=== PATIENT | female | born 2005 | race Native Hawaiian/Other Pacific Islander ===

== ENCOUNTER 2025-06-23 07:26 | Outpatient (CLI) | payer SELFPAY ==
[2025-06-23 07:42] VITALS: BP 127/78; PULSE 92; RESP 16; TEMP 36.8
--- NOTE | 2025-06-23 10:27 | PC.OBNST ---
NST Note NST Note Start: 06/23/25 07:33 Freq: ONCE Status: Active Protocol: Document 06/23/25 07:33 [facility] (Rec: 06/23/25 10:27 [facility] [id number]) NST Note 3 Para (# of births) 2 EDC 06/27/25 Gestational Age In 39 Weeks & 3 Days Weeks & Days Patient Presented Contractions/cramping with Complaint(s) of Reactive Yes Appropriate for Yes Gestational Age MARK Collado Date 06/23/25 Reactive Yes Appropriate for Yes Gestational Age MARK Kumar Date 06/23/25 OB NST charge Yes Complete NST Note Yes via Write Note The provider's electronic signature indicates the NST is reactive/appropriate for gestational age. *Note to provider: If an addendum is required, open the patient's chart and click on the note under the Nurse/Allied Health tab.
== END 2025-06-23 10:35 | disposition home or self-care (01) ==
LOC: OB OUT 07:27 → OB 07:28
PROVIDERS: Visit Provider Family Medicine
DX: O47.03 False labor before 37 completed weeks of gestation, third trimester (principal); Z3A.39 39 weeks gestation of pregnancy
CPT/HCPCS: 59025; G0463

== ENCOUNTER 2025-06-23 17:13 | Inpatient (IN) | payer OTHER, SELFPAY ==
[2025-06-23] VITALS (12 sets, daily range): BP systolic 109–136; BP diastolic 56–82; PULSE 67–82; RESP 16–18; TEMP 36.6–36.9; O2SAT 96; BMI 36.3
[2025-06-23] MEDS: AMPICILLIN 2 GM in 0.9 % SODIUM CHLORIDE Mini-bag 100 ML IVPB (17:16)
[2025-06-23] MEDS: LACTATED RINGERS 500 ML 500 ML 125 ML IV (17:16)
[2025-06-23] MEDS: OXYTOCIN 30 unit/500 ML in NS 30 UNIT/500 ML BAG 300 UNIT IVPB (17:39)
--- NOTE | 2025-06-23 18:02 | PM.OBHPLI ---
OB - H&P: HPI Labor/Induction History of Present Illness Time Seen by Provider: 17:30 Date Seen: 06/23/25 Chief Complaint: The patient is a 19 year old 3 para 2 at 39.3 weeks gestation by early ultrasound (unsure LMP), who presents with active labor. Chief complaint: maternity : 3 Para: 2 Narrative: Jil Younger is a 19 year old female who is a who presented at 39.3 weeks gestation in active labor. She progressed quickly without intervention. 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 Came in and was ruled out at 3 cm. She returned and was 4.5 cm on admission, was feeling pressure 1.5 hours later and I was called to bedside. She was 9cm upon my first evaluation. Breathing through contractions. She was a difficult IV, received approximately 15 minutes of abx prior to feeling urge to push. History of Present Dating criteria: based on 1st trimester US only care: good care (late to care, first visit 26 weeks) Ultrasounds: normal 1st trimester US and normal mid trimester US Medical complications: none Labs Blood type: O (+) positive Rubella: immune RPR/VDLR: nonreactive GBS status: positive HBsAG: negative Review of Systems Status of ROS: Reports: 10 or more systems reviewed and unremarkable except as noted in History and below Meds Home Medications and Allergies Home Medications ?Medication ?Instructions ?Recorded ?Confirmed ?Type [id number]-[id number] 1 mg tab PO DAILY 06/23/25 History tablet Allergies Allergy/AdvReac Type Severity Reaction Status Date / Time No Known Drug Allergies Allergy Verified 06/23/25 07:38 OB - H&P: Exam Physical Exam: Vital signs: Temp Pulse Resp BP 98.2 F 81 17 127/82 06/23/25 15:31 06/23/25 17:49 06/23/25 15:31 06/23/25 17:49 Constitutional: Constitutional: mild distress (painful with contractions) Routine HEENT Exam: Head: Present atraumatic and normal inspection Routine Neck Exam: Neck: Present full ROM Routine Respiratory Exam: Respiratory: Present CTA bilaterally Routine Cardiovascular Exam: Cardiovascular: RRR, S1 and S2 Routine Exam: Perineum Description: Normal Detailed Labor and Delivery Exam: Patient Gravid: yes Dilation (cm): 9 Effacement (%): 100 Cervix position: anterior Consistency: soft Contraction intensity: Strong/Firm Fetus (Single): Station: 0 Amniotic Membrane Status: intact Heart Rate Baseline: 130 Monitor Decelerations: None Long-Term Variability: Moderate (6-25) Routine Psychiatric Exam: Present normal affect OB - Problem Based A/P Additional Plan (1) Term : Problem details: 39.3 Status: Acute (2) (normal spontaneous vaginal delivery): Problem details: precipitous delivery via . Received 15 minutes abx. Status: Acute (3) Anemia affecting : Problem details: hemoglobin was 10.6,on iron prior to delivery. Status: Acute Plan Precipitous delivery, see procedure note for details routine cares
[2025-06-23] MEDS: IBUPROFEN 600 MG TABLET PO (18:08)
--- NOTE | 2025-06-23 18:15 | W.PM.OBVAGDE ---
OB Procedure Vag Delivery Mother Details Mother Details: The patient is a 19 year-old, 3, Para 2, admitted on 06/23/25 at 39.3 Days gestation in active labor : 3 Para: 2 Weeks Gestation: 39.3 Admission Date: 06/23/25 Additional Details Amniotic Membrane Status: SROM Amniotic Membrane Rupture Date: 06/23/25 Amniotic Membrane Rupture Time: 17:38 Amniotic Membrane Fluid Description: Clear Analgesia/Anesthesia Type: None Waterbirth: No [place]: No Intrapartal Events: Precipitous Labor <3 Hrs Labor Onset: 15:28 Complete: 17:32 Pushin:33 Heart: heart tones during second stage were category 1. Had accels, no decels and moderate variability. Delivery Details Delivery Date: 06/23/25 Delivery Time: 17:38 Route of delivery: Infant Gender: Female Viability: Alive; Heart Rate Present Position at Delivery: OA Delivery Details: Patient was admitted in active labor at 4.5 cm. She progressed quickly, feeling pressure with contractions I was called to bedside. Unfortunately, she was a difficult IV stick so antibiotics were delayed despite GBS status. She became complete at 1732, feeling urge to push. She was intact while pushing. Ruptured spontaneously as baby delivered at 1738. Delivered via spontaneous vaginal delivery. Infant was placed on maternal abdomen.? Cord was clamped and cut after a 30-60 second delay by support person who was in attendance at delivery. Nose and mouth were bulb suctioned.? weight pending. 1 Minute Interval Total Score: 9 5 Minute Interval Total Score: 9 Additional Details Shoulder Dystocia: No Placenta Delivery Time: 17:48 Placental Delivery Description: Spontaneous Blood Loss: 10 Laceration: None Blood Loss Measurement Type: EBL Sponge/Need Count Correct: Yes Cord Vessel Description: 3 Vessels Event Summary Status: Mother and were stable after delivery. Had very minimal bleeding, no laceration. Disposition: no change
[2025-06-24 04:45] VITALS: BP 123/83; PULSE 73; RESP 18; TEMP 36.8; O2SAT 98
[2025-06-24] MEDS: IBUPROFEN 600 MG TABLET PO (04:51)
[2025-06-24 06:39] LABS: Hemoglobin* 10.3 gm/dL (12.0-16.0)
[2025-06-24 07:42] VITALS: BP 93/62; PULSE 74; RESP 16; TEMP 36.7; O2SAT 99
[2025-06-24] MEDS: DOCUSATE SODIUM 100 MG CAPSULE PO (09:32)
--- NOTE | 2025-06-24 09:51 | PM.OBPNVD1 ---
OB - PN:Subj Subjective Time Seen by Provider: 09:51 Date Seen: 06/24/25 Patient comments OB post-: no complaints, pain well controlled and tolerating diet [place] infant status: bottle and doing well OB - PN: Obj Exam Physical Exam: Vital signs: Temp Pulse Resp BP Pulse Ox O2 Del Method 98.1 F 74 16 93/62 99 Room Air 06/24/25 07:42 06/24/25 07:42 06/24/25 07:42 06/24/25 07:42 06/24/25 07:42 06/24/25 07:42 Constitutional: Constitutional: no acute distress Routine HEENT Exam: Head: Present atraumatic Routine Neck Exam: Neck: Present full ROM Routine Respiratory Exam: Respiratory: Present CTA bilaterally Routine Cardiovascular Exam: Cardiovascular: Present RRR, S1 and S2; Absent murmur Routine Extremities Exam: Extremities: Absent calf tenderness or pedal edema Routine Neurological Exam: Neurological: Present alert and oriented X3 Routine Psychiatric Exam: Psychiatric: Present normal affect OB - PN: Obj Data Labs Labs: Laboratory Results - last 24 hr 06/24/25 06:30 Hgb 10.3 L OB - PN: A/P Delivery Assessment and Plan (1) Term : Problem details: 39.3 Status: Acute (2) (normal spontaneous vaginal delivery): Problem details: precipitous delivery via . Received 15 minutes abx. Status: Acute (3) Anemia affecting : Problem details: hemoglobin was 10.6, on iron prior to delivery. Repeat hemoglobin was 10.3. Bleeding has been minimal, did have 1 clot today Status: Acute Plan day: 1 Plan: routine care
[2025-06-24 11:50] VITALS: BP 115/70; PULSE 83; RESP 18; TEMP 36.7; O2SAT 97
[2025-06-24] MEDS: ACETAMINOPHEN 500 MG TABLET 1000 MG PO ×2 (15:35→23:00)
[2025-06-24 15:52] VITALS: BP 126/81; PULSE 66; RESP 18; TEMP 37.1; O2SAT 97
[2025-06-24 20:32] VITALS: BP 107/71; PULSE 73; RESP 18; TEMP 36.8; O2SAT 98
[2025-06-24 23:26] VITALS: BP 112/78; PULSE 62; RESP 20; TEMP 36.6; O2SAT 98
[2025-06-25 04:24] VITALS: BP 114/78; PULSE 67; RESP 20; TEMP 36.5; O2SAT 97
--- NOTE | 2025-06-25 07:33 | P.DS_ITS ---
DS: Providers Provider Date Seen: 06/25/25 Date of admission: 06/23/25 17:13 Primary care physician: Not a Local Provider Admitting Clinician: Dee Whatley MD Attending Physician on discharge: Dee Whatley MD DS: Diagnosis Discharge Diagnosis (1) (normal spontaneous vaginal delivery): Status: Acute Problem details: Precipitous delivery at 39.3 weeks via . Received 15 minutes abx. (2) Anemia affecting : Status: Acute Problem details: hemoglobin was 10.6, on iron prior to delivery. Repeat hemoglobin was 10.3. Bleeding has been minimal, did have 1 clot today Exam Narrative: Exam Narrative: Gen: No acute distress CV: Regular rate and rhythm, normal S1,S2, no murmurs Resp: Normal rate and effort, clear to auscultation bilaterally Abd: Soft, uterus firm and nontender at umbilicus Ext: Warm, dry, 2+ pedal pulses, no edema bilaterally. Calves non-tender to palpation. Const: Vital Signs, click to edit/add: Vital Signs - 24 hr 06/24/25 07:42 06/24/25 11:50 06/24/25 15:52 Temperature 98.1 F 98.1 F 98.7 F Pulse Rate [Pulse Oximeter] 74 83 66 Respiratory Rate 16 18 18 Blood Pressure [Le ft Arm] 93/62 115/70 126/81 Pulse Oximetry 99 97 97 Oxygen Delivery Me thod Room Air Room Air Room Air 06/24/25 20:32 06/24/25 23:26 06/25/25 04:24 Temperature 98.2 F 97.9 F 97.7 F Pulse Rate [Pulse Oximeter] 73 62 67 Respiratory Rate 18 20 20 Blood Pressure [Le ft Arm] 107/71 112/78 114/78 Pulse Oximetry 98 98 97 Oxygen Delivery Me thod Room Air Room Air Room Air OB - DS: Summary Hospital Course Hospital Course: The patient is a 19 year old who presented at 39.3 weeks gestation admitted to the Center on 06/23/25 for active labor, delivered precipitously with an otherwise uncomplicated vaginal delivery. GBS positive, inadequately treated. She delivered a viable male infant. She is bottle feeding. the patient has done well. [place] Gender: Female Status at Discharge Functional status at discharge: independent ambulation Overall status at discharge: patient is progressing back to baseline Time Spent with Patient Time attestation: Total time spent providing and/or coordinating discharge services: Discharge Plan Discharge Disposition: Home, Self-Care Date of Admission: 06/23/25 17:13 Primary Care Provider: Provider,Not a Local Condition: Stable Anticipated Discharge Date/Time: 06/25/25 07:36 Discharge Medications: Continued lulzlqdt-cjc-On-FA 1 mg tablet PO DAILY Discharge Orders: Discharge Order (Routine); Ordered 06/25/25 Ordered By: Chantell Melvin Patient Education: OB Vaginal/Bottle Feeding Follow Up Appointments: Provider,Not a Local [Primary Care Provider, Family Practice] Forms: Patient Belongings, [employer] Info Instructions DS:Data Additional Comments Additional comments: - Pelvic rest for 6 weeks (no intercourse, tampons or douching), or until one week after vaginal bleeding stops. - Daily activities for the first week should be limited to taking care of patient and her baby, and only as tolerated. - Call MD if fever > 100.4 degrees, bleeding more than 1 pad / hour, foul- smelling discharge, passage of golf-ball sized blood clots, or worsening of pain not controlled by medications.
[2025-06-25] MEDS: ACETAMINOPHEN 500 MG TABLET 1000 MG PO (08:47)
[2025-06-25] MEDS: DOCUSATE SODIUM 100 MG CAPSULE PO (08:47)
== END 2025-06-25 11:50 | disposition home or self-care (01) | DRG 807 ==
LOC: OB OUT 17:13 → OB 17:13
PROVIDERS: Admitting Provider Family Medicine; Visit Provider Family Medicine
DX: O99.02 Anemia complicating childbirth (principal); Z37.0 Single live birth; D64.9 Anemia, unspecified; O62.3 Precipitate labor; O99.824 Streptococcus B carrier state complicating childbirth; Z3A.39 39 weeks gestation of pregnancy
CPT/HCPCS: 36415; 85018; 85025; 86592; A9270; J0290; J7120